=== PATIENT | female | born 1995 | race Caucasian/White ===

== ENCOUNTER 2018-02-05 14:47 | Inpatient (IN) | payer OTHER ==
[2018-02-05 16:25] LABS: RUPTURE FETAL MEMBRANES NEGATIVE (NEGATIVE)
[2018-02-05] MEDS: LACTATED RINGER'S 1,000 ML IV* ×2 (17:53→19:39)
[2018-02-05] MEDS ORDERED: METHYLERGONOVINE 0.2 MG INJ IM (18:00)
[2018-02-05] MEDS ORDERED: LIDOCAINE 1% (MPF) 30 ML INJ INJ ×2 (18:00→20:30)
[2018-02-05] MEDS ORDERED: OXYTOCIN 30 UNITS/LR 500 ML IV (18:00)
[2018-02-05] MEDS ORDERED: CARBOPROST 250 MCG INJ IM (18:00)
[2018-02-05] MEDS ORDERED: MISOPROSTOL 200 MCG TAB PR (18:00)
[2018-02-05 18:24] LABS: ADD MAN DIFF? NO
[2018-02-05 18:25] LABS: BASOPHILS % 0.2 % (0.0-2.0); EOSINOPHILS % 0.3 % (0.0-7.0); HEMOGLOBIN 10.3 g/dl (12.0-16.0); LYMPHOCYTES # 1.9 10^3/ul (0.8-2.9); LYMPHOCYTES % 15.8 % (15.0-51.0); MEAN CORPUSCULAR HGB CONC 33.2 g/dl (32.0-37.0); MEAN CORPUSCULAR VOLUME 81.4 fl (82.0-101.0); MEAN PLATELET VOLUME 9.4 fl (7.4-10.4); MONOCYTE # 0.7 10^3/ul (0.3-0.9); MONOCYTES % 5.7 % (0.0-11.0); NEUTROPHIL # 9.3 10^3/ul (1.6-7.5); NEUTROPHILS % 77.7 % (39.0-77.0); PLATELET COUNT 306 10^3/UL (140-415); RED BLOOD COUNT 3.81 10^6/ul (4.20-5.40); RED CELL DISTRIBUTION WIDTH 12.7 % (11.5-14.5)
[2018-02-05 18:46] LABS: INR 0.96; PROTIME 12.9 Sec (11.9-14.9)
[2018-02-05 18:47] LABS: PARTIAL THROMBOPLASTIN TIME 26.8 Sec (25.0-35.0)
[2018-02-05] MEDS ORDERED: BUTORPHANOL 2 MG INJ IV (20:30)
[2018-02-05] MEDS ORDERED: IBUPROFEN 600 MG TAB PO (20:30)
[2018-02-05] MEDS: oxyCODONE 5 MG TAB PO (21:31)
[2018-02-05 21:45] LABS: HEPATITIS B SURFACE ANTIGEN NEGATIVE (NEGATIVE)
[2018-02-05] MEDS: MISOPROSTOL 25 MCG CAPSULE PO (23:16)
[2018-02-06] MEDS: MISOPROSTOL 25 MCG CAPSULE PO ×2 (03:22→07:52)
[2018-02-06] MEDS: LACTATED RINGER'S 1,000 ML IV* (03:48)
[2018-02-06] MEDS: LACTATED RINGER'S 1,000 ML IV ×2 (11:21→11:53)
[2018-02-06] MEDS ORDERED: FENTAnyl 2MCG/ML-ROPIV 0.2% 100 ML BAG EPI (12:00)
[2018-02-06] MEDS ORDERED: DIPHENHYDRAMINE 50 MG INJ IV (12:00)
[2018-02-06] MEDS ORDERED: ONDANSETRON 4 MG INJ IV (12:00)
[2018-02-06] MEDS ORDERED: NALOXONE (0.4 MG/ML) INJ IV (12:00)
[2018-02-06] MEDS ORDERED: HYDROmorphONE 0.5 MG/0.5 ML SYG IV ×2 (12:00)
[2018-02-06] MEDS: OXYTOCIN 30 UNITS/LR 500 ML IV ×3 (13:11→17:45)
[2018-02-06 14:55] LABS: RAPID PLASMA REAGIN NONREACTIVE (NR)
[2018-02-06] MEDS ORDERED: LANOLIN 7 GM TUBE TOP (17:30)
[2018-02-06] MEDS ORDERED: DIBUCAINE 1% 30 GM OINT PR (17:30)
[2018-02-06] MEDS ORDERED: MISOPROSTOL 200 MCG TAB PR (17:30)
[2018-02-06] MEDS ORDERED: CARBOPROST 250 MCG INJ IM (17:30)
[2018-02-06] MEDS ORDERED: OXYTOCIN 30 UNITS/LR 500 ML IV (17:30)
[2018-02-06] MEDS ORDERED: WITCH HAZEL/GLYCERIN PAD PR (17:30)
[2018-02-06] MEDS ORDERED: BENZOCAINE 20% 56 ML SPRAY TOP (17:30)
[2018-02-06] MEDS ORDERED: METHYLERGONOVINE 0.2 MG INJ IM (17:30)
[2018-02-06] MEDS: IBUPROFEN 600 MG TAB PO ×2 (17:42→23:32)
[2018-02-06] MEDS: SENNA/DOCUSATE NA (8.6MG/50MG) TAB PO (21:08)
[2018-02-07] MEDS: IBUPROFEN 600 MG TAB PO ×4 (06:12→23:25)
[2018-02-07 08:34] LABS: ADD MAN DIFF? NO
[2018-02-07 08:37] LABS: BASOPHILS % 0.2 % (0.0-2.0); EOSINOPHILS # 0.1 10^3/ul (0.0-0.5); HEMATOCRIT 29.7 % (37.0-47.0); HEMOGLOBIN 9.7 g/dl (12.0-16.0); LYMPHOCYTES # 1.8 10^3/ul (0.8-2.9); MEAN CORPUSCULAR HEMOGLOBIN 26.9 pg (29.0-33.0); MEAN CORPUSCULAR HGB CONC 32.7 g/dl (32.0-37.0); MEAN CORPUSCULAR VOLUME 82.5 fl (82.0-101.0); MEAN PLATELET VOLUME 9.5 fl (7.4-10.4); MONOCYTE # 0.6 10^3/ul (0.3-0.9); MONOCYTES % 6.1 % (0.0-11.0); NEUTROPHIL # 7.9 10^3/ul (1.6-7.5); NEUTROPHILS % 75.3 % (39.0-77.0); PLATELET COUNT 277 10^3/UL (140-415); RED CELL DISTRIBUTION WIDTH 12.5 % (11.5-14.5)
[2018-02-07 08:37] LABS: WHITE BLOOD COUNT 10.4 10^3/ul (4.8-10.8)
[2018-02-07] MEDS: SENNA/DOCUSATE NA (8.6MG/50MG) TAB PO ×2 (08:56→20:30)
[2018-02-08] MEDS: IBUPROFEN 600 MG TAB PO ×2 (05:39→12:49)
[2018-02-08] MEDS: SENNA/DOCUSATE NA (8.6MG/50MG) TAB PO (09:57)
[2018-02-08] MEDS: MEASLES,MUMPS,RUBELLA VACCINE INJ SC* (09:58)
== END 2018-02-08 13:50 | disposition home or self-care (01) | DRG 775 ==
LOC: OBT 14:47 → L-D 02-06 09:03 → OBT 16:08 → PP1 02-06 15:56 → L-D 16:08
PROVIDERS: Obstetrics & Gynecology
PROC: 10E0XZZ Delivery of Products of Conception, External Approach (ICD-10-PCS; principal; 2018-02-05)
DX: O41.03X0 Oligohydramnios, third trimester, not applicable or unspecified (principal); O69.81X0 Labor and delivery complicated by cord around neck, without compression, not applicable or unspecified; Z3A.37 37 weeks gestation of pregnancy; Z37.0 Single live birth
CPT/HCPCS: 62319; 76815; 76818; 84112; 85025; 85610; 85730; 86592; 86850; 86900; 86901; 87340